=== PATIENT | male | born 2000 | race Caucasian/White ===

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

== ENCOUNTER 2022-04-26 09:44 | Day surgery (SDC) | payer BC ==
[2022-04-26] MEDS ORDERED: Propofol 200 MG/20 ML SDV IV ONE (09:45)
[2022-04-26] MEDS ORDERED: Succinylcholine 200 MG/10 ML MDV IV ONE (09:45)
[2022-04-26] MEDS ORDERED: Neostigmine Methylsulfate 10 MG/10 ML MDV IVPUSH ONE (09:45)
[2022-04-26] MEDS ORDERED: Lactated Ringers 1,000 ML IV SCH (09:45)
[2022-04-26] MEDS ORDERED: Glycopyrrolate 0.2 MG/ML 5 ML MDV IV ONE (09:45)
[2022-04-26] MEDS ORDERED: Rocuronium 100 MG/10 ML MDV IV ONE (09:45)
[2022-04-26] MEDS ORDERED: Ondansetron 4 MG/2 ML SDV IVPUSH ONE (09:45)
[2022-04-26] MEDS ORDERED: Gabapentin 300 MG Cap PO ONE (09:45)
[2022-04-26] MEDS ORDERED: fentaNYL 100 MCG/2 ML SDV IV ONE (09:45)
[2022-04-26] MEDS ORDERED: Dexamethasone 4 MG/ML 5 ML MDV IVPUSH ONE (09:45)
[2022-04-26] MEDS ORDERED: Lidocaine 2% 5 ML SDV INJECT ONE (09:45)
[2022-04-26] MEDS ORDERED: Sodium Chloride 0.9% 10 ML Syringe FLUSH PRN (09:45)
[2022-04-26] MEDS ORDERED: Midazolam 1 MG/ML 2 ML SDV IV ONE (09:45)
[2022-04-26] MEDS ORDERED: Lactated Ringers 1,000 ML IV ONE (09:45)
[2022-04-26] MEDS ORDERED: Acetaminophen/HYDROcodone 325-5 MG Tab PO ONE (14:51)
[2022-04-26 16:31] VITALS: BP 135/78; PULSE 75
== END 2022-04-26 16:05 | disposition home or self-care (01) ==
LOC: FB.SDS 09:44
PROVIDERS: ATTEND Surgery
DX: J35.01 Chronic tonsillitis (principal); Z20.822 Contact with and (suspected) exposure to COVID-19; Z79.899 Other long term (current) drug therapy; Z79.2 Long term (current) use of antibiotics
CPT/HCPCS: 00170; 42831; 87635; 88304; A9270; J0330; J1100; J2250; J2405; J2704; J2710; J3010; J3490; J7120; U0002